=== PATIENT | male | born 1950 | race Two or more races ===

== ENCOUNTER 2018-06-30 18:46 | Observation (INO) | payer BC, OTHER ==
[2018-06-30 19:02] VITALS: BMI 27.4
--- NOTE | 2018-06-30 19:27 | PDOC ---
History of Present Illness - General Chief Complaint: Blood Pressure Problem Stated Complaint: HYPERTENSION Time Seen by Provider: 06/30/18 19:26 History Source: Family (son) Exam Limitations: No Limitations - History of Present Illness Initial Comments: 06/30/18 21:13 Best Contact: PCP:Dr. Best Pmhx: HTN (dx in his 20's) Pshx: Hemorrhoidectomy Allergies: NO KNOWN DRUG ALLERGIES FH: Unknown Social Hx: Cigarettes/ denies Alcohol/ frequent Drugs/denies 68-year-old male presents to the ER with his son complaining of high blood pressure. 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 Patient had a verbal altercation in the early afternoon and shortly after started feeling dizzy/room spinning but denies nausea/vomiting, fever/ chills, headache, lightheadedness, facial pains, neck pain/stiffness, back pains , chest pain, shortness of breath, abdominal pains, flank pains, urinary symptoms: Frequency/urgency/hesitancy, hematuria, extremity numbness or tingling sensation. Early evening today, patient states he went to the local pharmacy and had his blood pressure taken. Patient states his blood pressure was 184/102. Patient was informed by the pharmacist to come directly to the emergency department. Patient also states that while working as a office equipment mechanic earlier in the day, he was attempting to make a phone call but his phone kept on slipping out of his hands. Patient states he can either be his hands were to cold or he felt weak at the time. It only happened 2 times. Patient is able to grab items without any difficulty since arriving to the ER. Past History - Past Medical History Allergies/Adverse Reactions: Allergies Allergy/AdvReac Type Severity Reaction Status Date / Time No Known Allergies Allergy Verified 06/30/18 19:02 Home Medications: Ambulatory Orders Hydrochlorothiazide [Hctz -] 25 mg PO HS 06/30/18 Metoprolol Succinate [Toprol Xl -] 100 mg PO HS 06/30/18 COPD: No HTN: Yes - Suicide/Smoking/Psychosocial Hx Smoking Status: No Smoking History: Unknown if ever smoked Number of Cigarettes Smoked Daily: 0 Review of Systems - Review of Systems Able to Perform ROS?: Yes Comments:: 02/02/19 21:16 CONSTITUTIONAL: Absent: fever, chills, diaphoresis, generalized weakness, malaise, loss of appetite HEENT: Absent: rhinorrhea, nasal congestion, throat pain, throat swelling, difficulty swallowing, mouth swelling, ear pain, eye pain, visual Changes CARDIOVASCULAR: Absent: chest pain, loss of consciousness, palpitations, irregular heart rate, peripheral edema RESPIRATORY: Absent: cough, shortness of breath, dyspnea with exertion, orthopnea, wheezing, stridor, hemoptysis GASTROINTESTINAL: Absent: abdominal pain, abdominal distension, nausea, vomiting, diarrhea, constipation, melena, hematochezia GENITOURINARY: Absent: dysuria, frequency, urgency, hesitancy, hematuria, flank pain, genital pain MUSCULOSKELETAL: Absent: myalgia, arthralgia, joint swelling SKIN: Absent: rash, itching, pallor HEMATOLOGIC/IMMUNOLOGIC: Absent: easy bleeding, easy bruising, lymphadenopathy, frequent infections ENDOCRINE: Absent: unexplained weight gain, unexplained weight loss, heat intolerance, cold intolerance NEUROLOGIC: +dizziness Absent: headache, focal weakness or paresthesias, unsteady gait, seizure, mental status changes, bladder or bowel incontinence PSYCHIATRIC: Absent: anxiety, depression, suicidal or homicidal ideation, hallucinations. Is the patient limited Tajik proficient: No *Physical Exam - Vital Signs Last Vital Signs Temp Pulse Resp BP Pulse Ox 97.8 F 68 22 H 162/100 98 06/30/18 19:01 06/30/18 19:01 06/30/18 19:01 06/30/18 19:01 06/30/18 19:01 - Physical Exam Comments: 06/30/18 21:16 GENERAL: Well developed, well nourished. Awake and alert. No acute distress. HEENT: Normocephalic, atraumatic. PERRLA, EOMI. No conjunctival pallor. Sclera are non- icteric. Moist mucous membranes. Oropharynx is clear. NECK: Supple. Full ROM. No JVD. Carotid pulses 2+ and symmetric, without bruits. No thyromegaly. No lymphadenopathy. CARDIOVASCULAR: Regular rate and rhythm. No murmurs, rubs, or gallops. Distal pulses are 2+ and symmetric. PULMONARY: No evidence of respiratory distress. Lungs clear to auscultation bilaterally. No wheezing, rales or rhonchi. ABDOMINAL: Soft. Non-tender. Non-distended. No rebound or guarding. No organomegaly. Normoactive bowel sounds. MUSCULOSKELETAL Normal range of motion at all joints. No bony deformities or tenderness. No CVA tenderness. EXTREMITIES: No cyanosis. No clubbing. No edema. No calf tenderness. SKIN: Warm and dry. Normal capillary refill. No rashes. No jaundice. NEUROLOGICAL: Alert, awake, appropriate. Cranial nerves 2-12 intact. No deficits to light touch and temperature in face, upper extremities and lower extremities. No motor deficits in the in face, upper extremities and lower extremities. Normoreflexic in the upper and lower extremities. Normal speech. Toes are down- going bilaterally. Gait is normal without ataxia. PSYCHIATRIC: Cooperative. Good eye contact. Appropriate mood and affect. Moderate Sedation - Procedure Monitoring Vital Signs: Procedure Monitoring Vital Signs Temperature 97.8 F 06/30/18 19:01 Pulse Rate 68 06/30/18 19:01 Respiratory Rate 22 H 06/30/18 19:01 Blood Pressure 162/100 06/30/18 19:01 O2 Sat by Pulse Oximetry (%) 98 06/30/18 19:01 Heart Score/ECG Review - History History: Slightly suspicious - Electrocardiogram EKG: Normal - Age Age: >/= 65 - Risk Factors Risk Factors Heart Score: Yes Hx Hypertension Based on the list above the patient has:: 1-2 risk factors - Troponin Troponin: </= normal limit (+LVH) - Score Heart Score - Total: 3 ED Treatment Course - LABORATORY CBC & Chemistry Diagram: 06/30/18 19:32 06/30/18 19:32 *DC/Admit/Observation/Transfer Diagnosis at time of Disposition: Hypertension Qualifiers: Hypertension type: unspecified secondary hypertension Qualified Code(s): I15.9 - Secondary hypertension, unspecified - Discharge Dispostion Condition at time of disposition: Stable Decision to Admit order: Yes - Referrals - Patient Instructions - Post Discharge Activity
[2018-06-30] MEDS ORDERED: METOPROLOL TARTRATE 50 MG TABLET (FP) PO ONE ×2 (19:35)
[2018-06-30] MEDS ORDERED: HYDROCHLOROTHIAZIDE 25 MG TABLET (FP) PO ONE (19:35)
[2018-06-30] MEDS ORDERED: METOPROLOL TARTRATE 50 MG TABLET (FP) ONE (19:42)
[2018-06-30] MEDS ORDERED: HYDROCHLOROTHIAZIDE 25 MG TABLET (FP) ONE ×2 (19:42→19:58)
[2018-06-30 19:52] LABS: BASO % 0.6 % (0-2.0); EOS % 3.2 % (0-4.5); HEMATOCRIT 44.5 % (35.4-49); HEMOGLOBIN 15.8 GM/dL (11.7-16.9); LYMPH % 27.1 % (8-40); MCH 33.7 pg (25.7-33.7); MCHC 35.4 g/dl (32.0-35.9); MEAN CELL VOLUME 95.1 fl (80-96); MEAN PLT VOLUME 7.6 fl (7.5-11.1); MONO % 10.7 % (3.8-10.2); NEUT % 58.4 % (42.8-82.8); PLATELET COUNT 187 K/MM3 (134-434); RBC 4.68 M/mm3 (4.00-5.60); WHITE BLOOD COUNT 6.5 K/mm3 (4.0-10.0)
[2018-06-30 20:04] LABS: URINE APPEARANCE CLEAR; URINE BILIRUBIN NEGATIVE (<2.0 mg/dL); URINE COLOR LTYELLOW; URINE GLUCOSE (UA) NEGATIVE (NEGATIVE); URINE KETONE NEGATIVE (NEGATIVE); URINE LEUK ESTERASE NEGATIVE (NEGATIVE); URINE NITRITE NEGATIVE (NEGATIVE); URINE PROTEIN 1+ (NEGATIVE); URINE UROBILINOGEN 4.0 E.U/dl mg/dL (0.2-1.0)
[2018-06-30 20:28] LABS: ALBUMIN 3.8 g/dl (3.4-5.0); ALK PHOS 86 U/L (45-117); ANION GAP 9 MMOL/L (8-16); BILIRUBIN,TOTAL 0.5 mg/dL (0.2-1); BLOOD UREA NITROGEN 16 mg/dL (7-18); CALCIUM 8.7 mg/dL (8.5-10.1); CHLORIDE 108 mmol/L (98-107); CO2 25 mmol/L (21-32); CREATININE 0.9 mg/dL (0.55-1.3); GLUCOSE,RANDOM 101 mg/dL (74-106); POTASSIUM 3.8 mmol/L (3.5-5.1); SGOT/AST 30 U/L (15-37); SGPT/ALT 32 U/L (13-61); SODIUM 142 mmol/L (136-145); TOT PROT 7.2 g/dl (6.4-8.2)
[2018-06-30] MEDS ORDERED: ASPIRIN 81 MG CHEWABLE TABLETS PO ONE (20:53)
[2018-06-30] MEDS ORDERED: NITROGLYCERIN 2% OINTMENT - 1GM PACKET TD ONE ×3 (20:53→20:59)
[2018-06-30] MEDS ORDERED: ASPIRIN 81 MG CHEWABLE TABLETS ONE (20:56)
[2018-07-01] MEDS ORDERED: ASPIRIN 325 MG TABLET PO SCH (11:30)
[2018-07-01] MEDS ORDERED: ASPIRIN 81 MG CHEWABLE TABLETS PO SCH (12:29)
[2018-07-01] MEDS: HEPARIN NA (PORCINE) 5,000 UNITS/ML 1ML VIAL SQ SCH ×2 (15:18→21:37)
--- NOTE | 2018-07-01 15:39 | EKG ---
Test Reason : Blood Pressure : / mmHG Vent. Rate : 067 BPM Atrial Rate : 067 BPM P-R Int : 170 ms QRS Dur : 072 ms QT Int : 386 ms P-R-T Axes : 054 -02 039 degrees QTc Int : 407 ms NORMAL SINUS RHYTHM VOLTAGE CRITERIA FOR LEFT VENTRICULAR HYPERTROPHY NONSPECIFIC T WAVE ABNORMALITY ABNORMAL ECG WHEN COMPARED WITH ECG OF 25-AUG-2008 16:28, T WAVE INVERSION NO LONGER EVIDENT IN INFERIOR LEADS INVERTED T WAVES HAVE REPLACED NONSPECIFIC T WAVE ABNORMALITY IN LATERAL LEADS Confirmed by GEOVANNA CHAU MD ([id number]) on 07/01/2018 3:38:56 PM Referred By: Confirmed By:GEOVANNA CHAU MD
--- NOTE | 2018-07-01 17:38 | HP ---
CHIEF COMPLAINT: Lightheadedness HISTORY OF PRESENT ILLNESS: 68 year old male with history of HTN, presents with an episode of lightheadedness/dizziness which he describes as the "room spinning", duration over a few seconds. No associated chest pain/palpitations/nausea/vomiting. He was found to be hypertensive in ED with elevated BP, responded to Nitropaste and resuming of home medications. He denies any visual disturbance, headache, limb numbness/tingling. No nausea/vomiting. He does complain of 3 month history of musculoskeletal left arm discomfort and decreased power. No recent URTI or history of vertigo or syncope. PAST MEDICAL HISTORY: HTN PAST SURGICAL HISTORY: None Social History: Smoking: None Alcohol: None Drugs: None Family History: Reviewed and non-contributory Allergies - None No Known Allergies Allergy (Verified 06/30/18 19:02) HOME MEDICATIONS: Home Medications Medication Instructions Recorded Hydrochlorothiazide [Hctz -] 25 mg PO HS 06/30/18 Metoprolol Succinate [Toprol Xl -] 100 mg PO HS 06/30/18 REVIEW OF SYSTEMS CONSTITUTIONAL: Absent: fever, chills, diaphoresis, generalized weakness, malaise, loss of appetite, weight change HEENT: Absent: rhinorrhea, nasal congestion, throat pain, throat swelling, difficulty swallowing, mouth swelling, ear pain, eye pain, visual changes CARDIOVASCULAR: Absent: chest pain, syncope, palpitations, irregular heart rate, lightheadedness , peripheral edema RESPIRATORY: Absent: cough, shortness of breath, dyspnea with exertion, orthopnea, wheezing, stridor, hemoptysis GASTROINTESTINAL: Absent: abdominal pain, abdominal distension, nausea, vomiting, diarrhea, constipation, melena, hematochezia GENITOURINARY: Absent: dysuria, frequency, urgency, hesitancy, hematuria, flank pain, genital pain MUSCULOSKELETAL: Absent: myalgia, arthralgia, joint swelling, back pain, neck pain SKIN: Absent: rash, itching, pallor HEMATOLOGIC/IMMUNOLOGIC: Absent: easy bleeding, easy bruising, lymphadenopathy, frequent infections ENDOCRINE: Absent: unexplained weight gain, unexplained weight loss, heat intolerance, cold intolerance NEUROLOGIC: Absent: headache, focal paresthesias, unsteady gait, seizure, mental status changes, bladder or bowel incontinence PSYCHIATRIC: Absent: anxiety, depression, suicidal or homicidal ideation, hallucinations. PHYSICAL EXAMINATION Vital Signs - 24 hr 06/30/18 07/01/18 07/01/18 19:01 01:43 02:30 Temperature 97.8 F 98.6 F 98.1 F Pulse Rate 68 52 L Pulse Rate [ 60 Apical] Respiratory 22 H 18 20 Rate Blood Pressure 162/100 113/71 Blood Pressure 129/84 [Left Arm] O2 Sat by Pulse 98 97 Oximetry (%) 07/01/18 07/01/18 07/01/18 07:01 08:56 11:15 Temperature Pulse Rate 58 L 58 L Pulse Rate [ Apical] Respiratory 20 20 18 Rate Blood Pressure 130/78 138/44 L Blood Pressure [Left Arm] O2 Sat by Pulse 97 97 Oximetry (%) 07/01/18 14:41 Temperature 98.2 F Pulse Rate 67 Pulse Rate [ Apical] Respiratory 18 Rate Blood Pressure 144/87 Blood Pressure [Left Arm] O2 Sat by Pulse Oximetry (%) GENERAL: Awake, alert, and fully oriented, in no acute distress. HEAD: Normal with no signs of trauma. EYES: Pupils equal, round and reactive to light, extraocular movements intact, sclera anicteric. EARS, NOSE, THROAT: Ears normal, nares patent, oropharynx clear without exudates. Moist mucous membranes. NECK: Normal range of motion, supple without lymphadenopathy, JVD, or masses. LUNGS: Breath sounds equal, clear to auscultation bilaterally. No wheezes, and no crackles. No accessory muscle use. HEART: Regular rate and rhythm, normal S1 and S2 without murmur, rub or gallop. ABDOMEN: Soft, nontender, not distended, normoactive bowel sounds, no guarding, no rebound, no masses. No hepatomegaly or splenomegaly. MUSCULOSKELETAL: Normal range of motion at all joints. No bony deformities or tenderness. No CVA tenderness. NEUROLOGICAL: Cranial nerves II-XII intact. Normal speech. Normal gait. Tone/ Power normal all 4 extremities. EXTREMITIES: No edema. No calf tenderness. PSYCHIATRIC: Cooperative. Good eye contact. Appropriate mood and affect. SKIN: Warm, dry, normal turgor, no rashes or lesions noted, normal capillary refill. Laboratory Results - last 24 hr 06/30/18 06/30/18 06/30/18 19:32 19:32 19:32 WBC 6.5 RBC 4.68 Hgb 15.8 Hct 44.5 MCV 95.1 MCH 33.7 MCHC 35.4 RDW 13.0 Plt Count 187 MPV 7.6 Absolute Neuts (auto) 3.8 Neutrophils % 58.4 Lymphocytes % 27.1 Monocytes % 10.7 H Eosinophils % 3.2 Basophils % 0.6 Nucleated RBC % 0 Sodium 142 Potassium 3.8 Chloride 108 H Carbon Dioxide 25 Anion Gap 9 BUN 16 Creatinine 0.9 Creat Clearance w eGFR > 60 Random Glucose 101 Calcium 8.7 Total Bilirubin 0.5 AST 30 ALT 32 Alkaline Phosphatase 86 Creatine Kinase Creatine Kinase Index CK-MB (CK-2) Troponin I Total Protein 7.2 Albumin 3.8 TSH 2.88 Urine Color Ltyellow Urine Appearance Clear Urine pH 7.0 Ur Specific [place] 1.016 Urine Protein 1+ H Urine Glucose (UA) Negative Urine Ketones Negative Urine Blood Negative Urine Nitrite Negative Urine Bilirubin Negative Urine Urobilinogen 4.0 e.u/dl Ur Leukocyte Esterase Negative Urine WBC (Auto) 1 Urine RBC (Auto) <1 06/30/18 06/30/18 19:32 22:47 WBC RBC Hgb Hct MCV MCH MCHC RDW Plt Count MPV Absolute Neuts (auto) Neutrophils % Lymphocytes % Monocytes % Eosinophils % Basophils % Nucleated RBC % Sodium Potassium Chloride Carbon Dioxide Anion Gap BUN Creatinine Creat Clearance w eGFR Random Glucose Calcium Total Bilirubin AST ALT Alkaline Phosphatase Creatine Kinase 309 H 320 H Creatine Kinase Index 1.3 1.1 CK-MB (CK-2) 4.2 H 3.8 H Troponin I 0.04 0.03 Total Protein Albumin TSH Urine Color Urine Appearance Urine pH Ur Specific [place] Urine Protein Urine Glucose (UA) Urine Ketones Urine Blood Urine Nitrite Urine Bilirubin Urine Urobilinogen Ur Leukocyte Esterase Urine WBC (Auto) Urine RBC (Auto) ASSESSMENT/PLAN: 68 year old male with history of HTN, presents with an episode of lightheadedness/dizziness, resolved, with no associated chest pain/palpitations/ SOB/headache/neurological deficit. 1. Episode of Dizziness, possible Vertigo - resolved. Lasted only seconds. No neurological findings/deficits. No nystagmus. No associated cardiac or neurologic symptoms/signs CT Head - no acute cardiopulmonary findings. ECG - LVH. SR, Nonspecific T wave abnormality. Will request Echo and Carotid with 24 hour telemonitoring. PT eval. 2. Widened Mediastinum on CXR Asymptomatic. Will request BP both arms and CTA Chest. 3. HTN - resumed on Metopolol and HCTZ. DVT Px - Heparin SQ Visit type - Emergency Visit Emergency Visit: Yes ED Registration Date: 07/01/18 Care time: The patient presented to the Emergency Department on the above date and was hospitalized for further evaluation of their emergent condition. - New Patient This patient is new to me today: Yes Date on this admission: 07/01/18 - Critical Care Critical Care patient: No
[2018-07-01] MEDS ORDERED: HYDROCHLOROTHIAZIDE 25 MG TABLET (FP) PO SCH (22:00)
[2018-07-02] MEDS: HEPARIN NA (PORCINE) 5,000 UNITS/ML 1ML VIAL SQ SCH ×2 (05:24→13:41)
--- NOTE | 2018-07-02 11:53 | PN ---
Teaching Attending Note Name of Resident: Gigi Tim ATTENDING PHYSICIAN STATEMENT I saw and evaluated the patient. I reviewed the resident's note and discussed the case with the resident. I agree with the resident's findings and plan as documented. SUBJECTIVE: Feels well - no further lightheadedness/dizziness. OBJECTIVE: Afebrile, Hemodynamically Stable. Last Vital Signs Temp Pulse Resp BP Pulse Ox 97.6 F 60 20 148/78 98 07/02/18 09:00 07/02/18 05:25 07/02/18 09:00 07/02/18 09:00 07/02/18 07:42 HEENT - Atraumatic, Normocephalic. Heart - S1, S2, RRR Lungs - clear to auscultation. Abdomen - soft, non-tender. Bowel Sounds normal. Neuro - AAO x 3. BESSIE. EOMI. NO nystagmus. Tone/Power normal all 4 extremities. Current Medications Generic Name Dose Route Start Last Admin Trade Name Freq PRN Reason Stop Dose Admin Aspirin 81 mg 07/01/18 12:29 07/02/18 09:21 Asa - PO 81 mg DAILY BERNADINE Administration Heparin Sodium (Porcine) 5,000 unit 07/01/18 14:00 07/02/18 05:24 Heparin - SQ 5,000 unit TID BERNADINE Administration Hydrochlorothiazide 25 mg 07/01/18 22:00 07/01/18 21:37 Hctz - PO 25 mg HS BERNADINE Administration Metoprolol Succinate 100 mg 07/01/18 22:00 07/01/18 21:37 Toprol Xl - PO 100 mg HS BERNADINE Administration ASSESSMENT/PLAN: 68 year old male with history of HTN, presents with an episode of lightheadedness/dizziness, resolved, with no associated chest pain/palpitations/ SOB/headache/neurological deficit. He was found to be hypertensive in ED. 1. Episode of Dizziness, possible Vertigo - resolved. Lasted only seconds. No neurological findings/deficits. No nystagmus. No associated cardiac or neurologic symptoms/signs CT Head - no acute cardiopulmonary findings. ECG - LVH. SR, Nonspecific T wave abnormality. Carotid Doppler - no hemodynamically significant stenosis. Echo pending No telemonitoring events. If Echo is unremarkable, then patient is medically stable for discharge. 2. Widened Mediastinum on CXR Asymptomatic. CTA Chest - borderline dilatation of ascending aorta, no dissection. 3. HTN - resumed on Metopolol and HCTZ. DVT Px - Heparin SQ
--- NOTE | 2018-07-02 14:21 | ECHO ---
Name: CORWIN CRAIG Exam:Adult Echocardiogram Study Date: 07/02/2018 08:49 AM Age: 68 yrs Reason For Study: Hypertension Height: 66 in Weight: 170 lb BSA: 1.9 m2 MMode/2D Measurements & Calculations IVSd: 1.2 cm ACS: 2.0 cm LVIDd: 4.5 cm LVIDs: 3.5 cm LVPWd: 1.4 cm EDV(Teich): 91.7 ml LVOT diam: 2.0 cm ESV(Teich): 52.2 ml Doppler Measurements & Calculations Med Peak E' Max: 10.1 cm/sec Lat Peak E' Max: 9.4 cm/sec Procedure A complete two-dimensional transthoracic echocardiogram was performed (2D, M-mode, Doppler and color flow Doppler). Technically limited study. Left Ventricle The left ventricle is normal in size. There is mild concentric left ventricular hypertrophy. Left jonathan tricular systolic function is low normal. Ejection Fraction = 50-55%. No regional wall motion abnormalities no taqueria. Right Ventricle The right ventricle is not well visualized. Atria The left atrial size is normal. Right atrial size is normal. Mitral Valve There is mild mitral annular calcification. There is trace mitral regurgitation. Tricuspid Valve The tricuspid valve is normal in structure and function. No tricuspid regurgitation. Aortic Valve There is mild aortic sclerosis.;. Trace to mild aortic regurgitation. Pulmonic Valve The pulmonic valve is not well visualized. Great Vessels The aortic root is normal size. Pericardium/Pleura There is no pericardial effusion. Interpretation Summary Technically limited study The left ventricle is normal in size. There is mild concentric left ventricular hypertrophy. Left ventricular systolic function is low normal. No regional wall motion abnormalities noted. Ejection Fraction = 50-55%. The right ventricle is not well visualized. The left atrial size is normal. Right atrial size is normal. There is mild mitral annular calcification. There is trace mitral regurgitation. There is mild aortic sclerosis. Trace to mild aortic regurgitation. There is no pericardial effusion. Previous study is not available for comparison Umer Kerr MD 07/02/2018 02:21 PM
[2018-07-02 14:53] VITALS: BP 128/83; PULSE 70; TEMP 98.2
--- NOTE | 2018-07-02 15:01 | DS ---
Physical Exam: SUBJECTIVE: Patient seen and examined this morning. He states he is feeling well. Denies any symptoms or concerns overnight. OBJECTIVE: Vital Signs Period Temp Pulse Resp BP Sys/Martinez Pulse Ox Last 24 Hr 97.6 F-98.8 F 60-70 16-20 121-148/74-89 98-98 PHYSICAL EXAM GENERAL: A&O, no acute distress HEAD: Normocephalic, atraumatic. EARS, NOSE, THROAT: oropharynx clear without exudates. Moist mucous membranes. LUNGS: CTA b/l, no crackles or wheezes HEART: Regular rate and rhythm, normal S1 and S2 without murmur ABDOMEN: Soft, nontender to palpation, normoactive bowel sounds MUSCULOSKELETAL: No bony deformities or tenderness. EXTREMITIES: warm, well-perfused. No peripheral edema. LABS HOSPITAL COURSE: Date of Admission:07/01/18 Date of Discharge: 07/02/18 HPI on Admission: 68 year old male with history of HTN, presents with an episode of lightheadedness/dizziness which he describes as the "room spinning", duration over a few seconds. No associated chest pain/palpitations/nausea/vomiting. He was found to be hypertensive in ED with elevated BP, responded to Nitropaste and resuming of home medications. He denies any visual disturbance, headache, limb numbness/tingling. No nausea/vomiting. He does complain of 3 month history of musculoskeletal left arm discomfort and decreased power. No recent URTI or history of vertigo or syncope. Hospital Course: Head CT and ECHO were without any signs of acute pathology. CXR revealed a widened mediastinum, concerning pathology was ruled out with a CTA of the chest. Pt clinically improved. His blood pressure remained well controlled on his home medications. He was deemed medically safe for discharge and instructed to follow up with his primary care physician within one week. Minutes to complete discharge: 35 Discharge Summary Reason For Visit: HYPERTENSION Current Active Problems Hypertension (Chronic) Condition: Stable - Instructions Diet, Activity, Other Instructions: You were admitted following an episode of dizziness and noted to have elevated blood pressure. You were given your home medications and your blood pressure improved. All of the imaging studies performed did not reveal any concerning findings. You had an ultrasound of your carotid arteries, a head CT scan, and an ECHO (ultrasound of your heart). At this point you are medically stable for discharge. You should resume taking your home medications as they are prescribed. You were started on a baby aspirin (81 mg daily). This medication has been sent to your pharmacy, however you can purchase it over the counter as well. You should follow up with your primary doctor in one week. If you have any concerning symptoms, you should be evaluated by your doctor or return to the emergency department. Referrals: Katerine Sinclair MD [Non Staff, Medical] - 1 Week Disposition: HOME - Home Medications Comprehensive Discharge Medication List: Ambulatory Orders Hydrochlorothiazide [Hctz -] 25 mg PO HS 06/30/18 Metoprolol Succinate [Toprol XL -] 100 mg PO HS 06/30/18 Aspirin [ASA -] 81 mg PO DAILY #30 tab.chew 07/02/18 This patient is new to me today: Yes Date on this admission: 07/02/18 Emergency Visit: Yes ED Registration Date: 07/01/18 Care time: The patient presented to the Emergency Department on the above date and was hospitalized for further evaluation of their emergent condition. Critical Care patient: No - Discharge Referral Referred to [facility] Med P.C.: No
== END 2018-07-02 16:27 | disposition home or self-care (01) ==
LOC: JER 18:46 → JERBED 07-01 00:08 → J4W 07-01 02:31
PROVIDERS: ADMIT Internal Medicine
PROC: 3E013GC Introduction of Other Therapeutic Substance into Subcutaneous Tissue, Percutaneous Approach (ICD-10-PCS; principal; 2018-07-01)
DX: I15.9 Secondary hypertension, unspecified (principal); J98.59 Other diseases of mediastinum, not elsewhere classified; I11.0 Hypertensive heart disease with heart failure
CPT/HCPCS: 36415; 70450-TC; 71046-TC-FY; 71275-TC; 80053; 81003; 81015; 82550; 82553; 84443; 84484; 85025; 93005; 93010; 93306-TC; 93880-TC; 96372; 97116-GP; 97161-GP; 99282-25; G0378; J1644

== ENCOUNTER 2022-04-07 21:09 | Inpatient (IN) | payer OTHER ==
[2022-04-07 21:14] VITALS: BMI 26.6
[2022-04-07 22:17] LABS: BASO % 0.3 % (0-2.0); EOS % 2.4 % (0-4.5); HEMATOCRIT 45.2 % (35.4-49); HEMOGLOBIN 15.8 GM/dL (11.7-16.9); LYMPH % 21.8 % (8-40); MCH 33.7 pg (25.7-33.7); MEAN CELL VOLUME 96.3 fl (80-96); MEAN PLT VOLUME 6.9 fl (7.5-11.1); MONO % 8.5 % (3.8-10.2); PLATELET COUNT 240 10^3/uL (134-434); RBC 4.69 M/mm3 (4.00-5.60); RDW 13.2 % (11.9-15.9); WHITE BLOOD COUNT 12.3 K/mm3 (4.0-10.0)
[2022-04-07 22:24] LABS: INR 1.18 (0.83-1.09); PROTHROMBIN TIME (PATIENT) 13.6 SEC (9.7-13.0)
[2022-04-07 22:27] LABS: ACTIVATED PTT 27.2 SECONDS (25.2-36.5)
[2022-04-07 22:38] LABS: CHLORIDE 102 mmol/L (98-107); SODIUM 129 mmol/L (136-145)
[2022-04-07 22:40] LABS: CALCIUM 8.2 mg/dL (8.5-10.1)
[2022-04-07 22:41] LABS: ALBUMIN 3.2 g/dl (3.4-5.0); BLOOD UREA NITROGEN 25.9 mg/dL (7-18); CO2 27 mmol/L (21-32); GLUCOSE,RANDOM 123 mg/dL (74-106)
[2022-04-07 22:43] LABS: CHOLESTEROL 109 mg/dL (50-200); CREATININE 0.9 mg/dL (0.55-1.3); TRIGLYCERIDES 306 mg/dL (0-150)
[2022-04-07 22:45] LABS: LDL CHOLESTEROL (ONLY SJRH) 59 mg/dL (5-100); TOT PROT 7.9 g/dl (6.4-8.2)
[2022-04-07 22:46] LABS: ALK PHOS 67 U/L (45-117); HDL CHOLESTEROL 43 mg/dL (40-60)
[2022-04-07 22:48] LABS: ANISOCYTOSIS 1+; MACROCYTOSIS 0; TARGET CELLS 1+
[2022-04-07 22:54] LABS: ANION GAP -1 MMOL/L (8-16); SGOT/AST 171 U/L (15-37)
[2022-04-07] MEDS ORDERED: ASPIRIN 81 MG CHEWABLE TABLETS PO ONE (23:06)
[2022-04-07] MEDS ORDERED: LACTATED RINGERS SOLUTION 1000 ML INFUS.BAG IV ONE (23:06)
[2022-04-07] MEDS ORDERED: ATORVASTATIN CA 80 MG TABLET (FP) PO ONE (23:07)
[2022-04-07] MEDS ORDERED: ATORVASTATIN CA 80 MG TABLET (FP) ONE (23:14)
[2022-04-07] MEDS ORDERED: ASPIRIN 81 MG CHEWABLE TABLETS ONE (23:15)
[2022-04-07 23:39] LABS: CALCIUM 9.1 mg/dL (8.5-10.1)
[2022-04-07 23:41] LABS: ALBUMIN 3.5 g/dl (3.4-5.0)
[2022-04-07 23:44] LABS: CREATININE 0.8 mg/dL (0.55-1.3)
[2022-04-07 23:45] LABS: BILIRUBIN,TOTAL 0.4 mg/dL (0.2-1)
[2022-04-07 23:46] LABS: TOT PROT 6.8 g/dl (6.4-8.2)
[2022-04-08 02:34] LABS: PHOSPHOROUS 3.2 mg/dL (2.5-4.9)
[2022-04-08 08:25] LABS: BASO % 0.3 % (0-2.0); EOS % 3.5 % (0-4.5); HEMOGLOBIN 15.8 GM/dL (11.7-16.9); LYMPH % 25.8 % (8-40); MCH 34.1 pg (25.7-33.7); MCHC 35.2 g/dl (32.0-35.9); MEAN PLT VOLUME 7.2 fl (7.5-11.1); MONO % 8.7 % (3.8-10.2); NEUT % 61.7 % (42.8-82.8); PLATELET COUNT 234 10^3/uL (134-434); RBC 4.63 M/mm3 (4.00-5.60); RDW 13.1 % (11.9-15.9)
[2022-04-08 08:51] LABS: ALBUMIN 3.4 g/dl (3.4-5.0)
[2022-04-08 08:52] LABS: BLOOD UREA NITROGEN 19.5 mg/dL (7-18); CALCIUM 8.7 mg/dL (8.5-10.1)
[2022-04-08 08:54] LABS: MAGNESIUM 2.3 mg/dL (1.8-2.4)
[2022-04-08 08:55] LABS: BILIRUBIN,TOTAL 0.6 mg/dL (0.2-1); CREATININE 0.7 mg/dL (0.55-1.3); TOT PROT 6.4 g/dl (6.4-8.2)
[2022-04-08] MEDS: ASPIRIN 81 MG CHEWABLE TABLETS PO SCH (09:43)
[2022-04-08] MEDS: ENOXAPARIN NA (PORCINE) 40 MG/0.4 ML DISP.SYRIN SQ SCH (09:43)
[2022-04-08] MEDS: HYDROCHLOROTHIAZIDE 25 MG TABLET (FP) PO SCH (16:36)
[2022-04-08] MEDS: ATORVASTATIN CA 80 MG TABLET (FP) PO SCH (21:40)
[2022-04-09 07:26] LABS: HEMATOCRIT 47.1 % (35.4-49); HEMOGLOBIN 16.3 GM/dL (11.7-16.9); MCH 33.6 pg (25.7-33.7); MCHC 34.7 g/dl (32.0-35.9); MEAN CELL VOLUME 96.9 fl (80-96); MEAN PLT VOLUME 7.1 fl (7.5-11.1); PLATELET COUNT 253 10^3/uL (134-434); RBC 4.86 M/mm3 (4.00-5.60); RDW 13.4 % (11.9-15.9); WHITE BLOOD COUNT 10.3 K/mm3 (4.0-10.0)
[2022-04-09 07:44] LABS: CALCIUM 8.9 mg/dL (8.5-10.1)
[2022-04-09 07:45] LABS: ALBUMIN 3.6 g/dl (3.4-5.0)
[2022-04-09 07:48] LABS: CREATININE 0.8 mg/dL (0.55-1.3)
[2022-04-09 07:49] LABS: BILIRUBIN,TOTAL 0.9 mg/dL (0.2-1)
[2022-04-09] MEDS: HYDROCHLOROTHIAZIDE 25 MG TABLET (FP) PO SCH (09:10)
[2022-04-09] MEDS: ASPIRIN 81 MG CHEWABLE TABLETS PO SCH (09:10)
[2022-04-09] MEDS: ENOXAPARIN NA (PORCINE) 40 MG/0.4 ML DISP.SYRIN SQ SCH (09:11)
[2022-04-09] MEDS ORDERED: SODIUM CHLORIDE 1,000 ML IV SCH (16:45)
[2022-04-09] MEDS: CLOPIDOGREL BISULFATE 75 MG TABLET (FP) PO SCH (17:39)
[2022-04-09] MEDS: ATORVASTATIN CA 80 MG TABLET (FP) PO SCH (23:05)
[2022-04-09] MEDS: DEXTROSE 5%-NORMAL SALINE 1,000 ML IV SCH (23:05)
[2022-04-10 08:22] LABS: BASO % 0.3 % (0-2.0); EOS % 1.6 % (0-4.5); HEMATOCRIT 45.7 % (35.4-49); HEMOGLOBIN 16.4 GM/dL (11.7-16.9); LYMPH % 21.4 % (8-40); MCH 34.6 pg (25.7-33.7); MCHC 35.8 g/dl (32.0-35.9); MEAN CELL VOLUME 96.7 fl (80-96); MEAN PLT VOLUME 6.9 fl (7.5-11.1); MONO % 9.7 % (3.8-10.2); PLATELET COUNT 231 10^3/uL (134-434); RBC 4.73 M/mm3 (4.00-5.60); RDW 13.2 % (11.9-15.9); WHITE BLOOD COUNT 9.5 K/mm3 (4.0-10.0)
[2022-04-10 08:34] LABS: CALCIUM 9.2 mg/dL (8.5-10.1)
[2022-04-10 08:35] LABS: ALBUMIN 3.5 g/dl (3.4-5.0); BLOOD UREA NITROGEN 18.3 mg/dL (7-18); MAGNESIUM 2.1 mg/dL (1.8-2.4)
[2022-04-10 08:38] LABS: CREATININE 0.8 mg/dL (0.55-1.3); PHOSPHOROUS 3.2 mg/dL (2.5-4.9)
[2022-04-10 08:40] LABS: TOT PROT 6.9 g/dl (6.4-8.2)
[2022-04-10] MEDS: ENOXAPARIN NA (PORCINE) 40 MG/0.4 ML DISP.SYRIN SQ SCH (10:57)
[2022-04-10] MEDS: CLOPIDOGREL BISULFATE 75 MG TABLET (FP) PO SCH (11:13)
[2022-04-10] MEDS: ASPIRIN COATED 81 MG TABLET.EC PO SCH (11:13)
[2022-04-10] MEDS: DEXTROSE 5%-NORMAL SALINE 1,000 ML IV SCH (20:43)
[2022-04-10] MEDS: ATORVASTATIN CA 80 MG TABLET (FP) PO SCH (21:49)
[2022-04-11] MEDS: CLOPIDOGREL BISULFATE 75 MG TABLET (FP) PO SCH (09:19)
[2022-04-11] MEDS: ASPIRIN COATED 81 MG TABLET.EC PO SCH (09:19)
[2022-04-11] MEDS: ENOXAPARIN NA (PORCINE) 40 MG/0.4 ML DISP.SYRIN SQ SCH (09:19)
[2022-04-11 11:56] LABS: HEMOGLOBIN 16.5 GM/dL (11.7-16.9); MCH 34.2 pg (25.7-33.7); MEAN CELL VOLUME 97.5 fl (80-96); MEAN PLT VOLUME 6.7 fl (7.5-11.1); PLATELET COUNT 234 10^3/uL (134-434); RBC 4.82 M/mm3 (4.00-5.60); RDW 13.2 % (11.9-15.9); WHITE BLOOD COUNT 12.7 K/mm3 (4.0-10.0)
[2022-04-11 12:26] LABS: BLOOD UREA NITROGEN 13.8 mg/dL (7-18); CALCIUM 9.1 mg/dL (8.5-10.1); MAGNESIUM 2.2 mg/dL (1.8-2.4)
[2022-04-11 12:30] LABS: CREATININE 0.7 mg/dL (0.55-1.3)
[2022-04-11] MEDS: ATORVASTATIN CA 80 MG TABLET (FP) PO SCH (21:07)
[2022-04-12 08:02] VITALS: RESP 18
[2022-04-12 08:55] LABS: CALCIUM 8.8 mg/dL (8.5-10.1)
[2022-04-12 08:56] LABS: BLOOD UREA NITROGEN 16.2 mg/dL (7-18)
[2022-04-12 08:59] LABS: CREATININE 0.9 mg/dL (0.55-1.3)
[2022-04-12] MEDS: CLOPIDOGREL BISULFATE 75 MG TABLET (FP) PO SCH (09:32)
[2022-04-12] MEDS: ENOXAPARIN NA (PORCINE) 40 MG/0.4 ML DISP.SYRIN SQ SCH (09:32)
[2022-04-12] MEDS: ASPIRIN COATED 81 MG TABLET.EC PO SCH (09:32)
[2022-04-12] MEDS: VALSARTAN 80 MG TABLET PO SCH (09:32)
[2022-04-12] MEDS ORDERED: HYDROCHLOROTHIAZIDE 25 MG TABLET (FP) PO SCH (14:30)
[2022-04-12] MEDS: HYDROCHLOROTHIAZIDE 25 MG TABLET (FP) PO SCH (15:30)
[2022-04-12] MEDS: ATORVASTATIN CA 80 MG TABLET (FP) PO SCH (21:39)
[2022-04-13] MEDS: HYDROCHLOROTHIAZIDE 25 MG TABLET (FP) PO SCH (09:59)
[2022-04-13] MEDS: ASPIRIN COATED 81 MG TABLET.EC PO SCH (09:59)
[2022-04-13] MEDS: ENOXAPARIN NA (PORCINE) 40 MG/0.4 ML DISP.SYRIN SQ SCH (09:59)
[2022-04-13] MEDS: CLOPIDOGREL BISULFATE 75 MG TABLET (FP) PO SCH (09:59)
[2022-04-13] MEDS: VALSARTAN 80 MG TABLET PO SCH (09:59)
[2022-04-13] MEDS: ATORVASTATIN CA 80 MG TABLET (FP) PO SCH (21:29)
[2022-04-14 09:12] VITALS: TEMP 98.8
[2022-04-14] MEDS: ENOXAPARIN NA (PORCINE) 40 MG/0.4 ML DISP.SYRIN SQ SCH (09:12)
[2022-04-14] MEDS: CLOPIDOGREL BISULFATE 75 MG TABLET (FP) PO SCH (09:13)
[2022-04-14] MEDS: HYDROCHLOROTHIAZIDE 25 MG TABLET (FP) PO SCH (09:13)
[2022-04-14] MEDS: VALSARTAN 80 MG TABLET PO SCH (09:13)
[2022-04-14] MEDS: ASPIRIN COATED 81 MG TABLET.EC PO SCH (09:13)
[2022-04-14 16:12] VITALS: BP 119/75; PULSE 79
== END 2022-04-14 16:45 | DRG 65 ==
LOC: JER 21:09 → JERBED 23:08 → J4W 04-08 03:52 → OBSVTOIN 04-10 12:08 → J4W 04-11 21:07
PROVIDERS: ADMIT Internal Medicine; ATTEND Internal Medicine
DX: I63.81 Other cerebral infarction due to occlusion or stenosis of small artery (principal); G12.22 Progressive bulbar palsy; G81.91 Hemiplegia, unspecified affecting right dominant side; I47.20 Ventricular tachycardia, unspecified; I11.9 Hypertensive heart disease without heart failure; E78.5 Hyperlipidemia, unspecified; R47.01 Aphasia; I65.29 Occlusion and stenosis of unspecified carotid artery; E78.00 Pure hypercholesterolemia, unspecified; I67.2 Cerebral atherosclerosis; D72.829 Elevated white blood cell count, unspecified
CPT/HCPCS: 0241U-QW; 36415; 70450-TC; 70496-TC; 70498-TC; 70551-TC; 71045-TC-FY; 80048; 80053; 80061; 82962; 83036; 83735; 84100; 84439; 84443; 84484; 85025; 85027; 85610; 85730; 86850; 86900; 86901; 93005; 93010; 93306-TC; 93880-TC; 97116-GP; 97161-GP; 99285-25; C9803-CS; G0378; Q9967; U0003; U0005

== ENCOUNTER 2022-05-11 19:12 | Emergency (ER) | payer OTHER ==
[2022-05-11 19:25] VITALS: RESP 18; TEMP 98.2; BMI 25.0
[2022-05-11 20:10] VITALS: BP 141/88; PULSE 78
[2022-05-11 21:05] LABS: HEMATOCRIT 37.6 % (35.4-49); HEMOGLOBIN 13.1 GM/dL (11.7-16.9); MCH 32.8 pg (25.7-33.7); MCHC 34.8 g/dl (32.0-35.9); MEAN CELL VOLUME 94.3 fl (80-96); MEAN PLT VOLUME 6.7 fl (7.5-11.1); PLATELET COUNT 241 10^3/uL (134-434); RBC 3.99 M/mm3 (4.00-5.60); RDW 12.5 % (11.9-15.9); WHITE BLOOD COUNT 9.8 K/mm3 (4.0-10.0)
[2022-05-11 21:15] LABS: INR 1.34 (0.83-1.09); PROTHROMBIN TIME (PATIENT) 15.4 SEC (9.7-13.0)
[2022-05-11 21:18] LABS: ACTIVATED PTT 31.3 SECONDS (25.2-36.5)
== END 2022-05-11 22:34 | disposition home or self-care (01) ==
LOC: JER 19:12
DX: R04.0 Epistaxis (principal)
CPT/HCPCS: 36415; 85027; 85610; 85730; 99283-25

== ENCOUNTER 2022-07-03 23:02 | Emergency (ER) | payer OTHER ==
[2022-07-03 23:10] VITALS: BP 142/78; PULSE 75; RESP 18; TEMP 98; BMI 27.4
[2022-07-04 02:24] LABS: BASO % 0.6 % (0-2.0); EOS % 3.5 % (0-4.5); HEMOGLOBIN 13.2 GM/dL (11.7-16.9); LYMPH % 26.9 % (8-40); MCH 33.2 pg (25.7-33.7); MCHC 34.8 g/dl (32.0-35.9); MEAN CELL VOLUME 95.4 fl (80-96); MEAN PLT VOLUME 7.2 fl (7.5-11.1); MONO % 8.1 % (3.8-10.2); NEUT % 60.9 % (42.8-82.8); PLATELET COUNT 229 10^3/uL (134-434); RBC 3.98 M/mm3 (4.00-5.60); RDW 14.1 % (11.9-15.9); WHITE BLOOD COUNT 8.6 K/mm3 (4.0-10.0)
[2022-07-04 02:32] LABS: INR 1.22 (0.83-1.09); PROTHROMBIN TIME (PATIENT) 14.1 SEC (9.7-13.0)
[2022-07-04 02:45] LABS: ALBUMIN 3.7 g/dl (3.4-5.0); CALCIUM 9.1 mg/dL (8.5-10.1)
[2022-07-04 02:46] LABS: BLOOD UREA NITROGEN 22.8 mg/dL (7-18)
[2022-07-04 02:48] LABS: CREATININE 1.1 mg/dL (0.55-1.3)
[2022-07-04 02:50] LABS: BILIRUBIN,TOTAL 0.4 mg/dL (0.2-1); TOT PROT 7.3 g/dl (6.4-8.2)
== END 2022-07-04 03:45 | disposition home or self-care (01) ==
LOC: JER 23:02
DX: R04.0 Epistaxis (principal)
CPT/HCPCS: 36415; 80053; 85025; 85610; 85730; 86850; 86900; 86901; 99283-25

== ENCOUNTER 2022-07-10 11:12 | Emergency (ER) | payer OTHER ==
[2022-07-10 11:19] VITALS: TEMP 98.5; BMI 27.4
[2022-07-10 12:30] LABS: BASO % 0.4 % (0-2.0); EOS % 1.7 % (0-4.5); HEMATOCRIT 39.2 % (35.4-49); HEMOGLOBIN 13.7 GM/dL (11.7-16.9); LYMPH % 20.3 % (8-40); MCH 33.7 pg (25.7-33.7); MEAN CELL VOLUME 96.4 fl (80-96); MEAN PLT VOLUME 6.8 fl (7.5-11.1); MONO % 7.2 % (3.8-10.2); NEUT % 70.4 % (42.8-82.8); PLATELET COUNT 278 10^3/uL (134-434); RBC 4.07 M/mm3 (4.00-5.60); RDW 14.2 % (11.9-15.9); WHITE BLOOD COUNT 9.4 K/mm3 (4.0-10.0)
[2022-07-10 12:38] LABS: INR 1.21 (0.83-1.09)
[2022-07-10 12:41] LABS: ACTIVATED PTT 29.2 SECONDS (25.2-36.5)
[2022-07-10 12:59] LABS: ALBUMIN 3.8 g/dl (3.4-5.0); BLOOD UREA NITROGEN 16.8 mg/dL (7-18)
[2022-07-10 13:02] LABS: CREATININE 0.9 mg/dL (0.55-1.3)
[2022-07-10 13:04] LABS: BILIRUBIN,TOTAL 0.8 mg/dL (0.2-1); TOT PROT 7.4 g/dl (6.4-8.2)
[2022-07-10 13:29] VITALS: RESP 16
[2022-07-10] MEDS ORDERED: MECLIZINE HCL 25 MG TABLET (FP) PO ONE (15:38)
[2022-07-10] MEDS ORDERED: MECLIZINE HCL 25 MG TABLET (FP) ONE (15:43)
[2022-07-10 18:10] VITALS: BP 161/100; PULSE 62
== END 2022-07-10 18:11 | disposition home or self-care (01) ==
LOC: JER 11:12
DX: R42 Dizziness and giddiness (principal)
CPT/HCPCS: 36415; 70450-TC; 80053; 84484; 85025; 85610; 85730; 86850; 86900; 86901; 93005; 93010; 99285-25; C9803-CS; U0003; U0005

== ENCOUNTER 2023-03-01 10:02 | Day surgery (SDC) | payer OTHER ==
[2023-02-28 16:15] VITALS: BMI 29.9
[2023-03-01] MEDS ORDERED: TETRACAINE 0.5% OPHTH SOLN 2 ML BOTTLE ONE (10:23)
[2023-03-01] MEDS ORDERED: LIDOCAINE 1% P/F 10 MG/ML VIAL ONE (10:23)
[2023-03-01] MEDS ORDERED: NEO/POLYMYX B SULF/DEXAMETH OPHTHALMIC 5ML BOTTLE ONE (10:23)
[2023-03-01] MEDS ORDERED: BSS (NA/CA/MG/K) BALANCED SALT SOLUTION OPHTH SOLN 15 ML BOTTLE ONE (10:23)
[2023-03-01] MEDS ORDERED: CARBACHOL 0.01% INTRA-OCULAR 1.5 ML VIAL ONE (10:23)
[2023-03-01] MEDS ORDERED: MIDAZOLAM HCL 2 MG/2 ML SINGLE DOSE VIAL ONE (10:41)
[2023-03-01] MEDS: CIPROFLOXACIN HCL 0.3% OPHTH 2.5ML BOTTLE ONE ×3 (11:40→11:50)
[2023-03-01] MEDS: PHENYLEPHRINE 2.5% OPTHALMIC DROP 2ML BOTTLE ONE ×3 (11:40→11:50)
[2023-03-01] MEDS: TROPICAMIDE 1% OPHTH SOLN 15 ML BOTTLE ONE ×3 (11:40→11:50)
[2023-03-01] MEDS: CYCLOPENTOLATE 2% OPHTH SOLN 2 ML BOTTLE ONE ×3 (11:40→11:50)
[2023-03-01] MEDS ORDERED: EPINEPHrine/PF 1 MG/1 ML (1:1,000) AMPULE ONE (12:18)
[2023-03-01 13:13] VITALS: TEMP 97.8
[2023-03-01 13:56] VITALS: BP 130/94; PULSE 66; RESP 16
== END 2023-03-01 13:45 | disposition home or self-care (01) ==
LOC: FASU 10:02
PROVIDERS: ATTEND Ophthalmology
PROC: 08RJ3JZ Replacement of Right Lens with Synthetic Substitute, Percutaneous Approach (ICD-10-PCS; principal; 2023-03-01 12:38)
DX: H26.8 Other specified cataract (principal)
CPT/HCPCS: 66984; V2632

== ENCOUNTER 2023-04-22 22:09 | Emergency (ER) | payer OTHER ==
[2023-04-22] MEDS ORDERED: METOCLOPRAMIDE HCL INJECTION 10 MG/2 ML VIAL IVPUSH ONE (22:55)
[2023-04-22 23:00] VITALS: TEMP 97.9; BMI 25.8
[2023-04-22] MEDS ORDERED: METOCLOPRAMIDE HCL INJECTION 10 MG/2 ML VIAL ONE (23:17)
[2023-04-22 23:26] LABS: BASO % 0.6 % (0-2.0); EOS % 2.7 % (0-4.5); HEMATOCRIT 42.1 % (35.4-49); HEMOGLOBIN 14.7 GM/dL (11.7-16.9); LYMPH % 33.6 % (8-40); MCH 32.2 pg (25.7-33.7); MEAN CELL VOLUME 91.8 fl (80-96); MEAN PLT VOLUME 6.7 fl (7.5-11.1); MONO % 7.5 % (3.8-10.2); NEUT % 55.6 % (42.8-82.8); PLATELET COUNT 255 10^3/uL (134-434); RBC 4.58 M/mm3 (4.00-5.60); RDW 13.4 % (11.9-15.9); WHITE BLOOD COUNT 7.2 K/mm3 (4.0-10.0)
[2023-04-22 23:31] LABS: EPI CELLS 2 /uL (0-25.1); HYALINE CASTS 1 /uL (0-3.1); PH,URINE 5.5 (5.0-8.0); URINE APPEARANCE CLEAR; URINE BACTERIA 5 /uL (0-1359); URINE BILIRUBIN NEGATIVE (NEGATIVE); URINE COLOR YELLOW; URINE GLUCOSE (UA) NEGATIVE (NEGATIVE); URINE KETONE NEGATIVE (NEGATIVE); URINE LEUK ESTERASE NEGATIVE (NEGATIVE); URINE NITRITE NEGATIVE (NEGATIVE); URINE PROTEIN 2+ (NEGATIVE); URINE RBC 5 /uL (0-23.9); URINE WBC 6 /uL (0-25.8)
[2023-04-22] MEDS ORDERED: ACETAMINOPHEN 1000 MG/100 ML BAG IVPB ONE (23:31)
[2023-04-22 23:44] LABS: POTASSIUM 3.3 mmol/L (3.5-5.1)
[2023-04-22 23:46] LABS: CALCIUM 9.1 mg/dL (8.5-10.1)
[2023-04-22 23:47] LABS: ALBUMIN 3.8 g/dl (3.4-5.0); BLOOD UREA NITROGEN 15.6 mg/dL (7-18)
[2023-04-22 23:50] LABS: CREATININE 1.1 mg/dL (0.55-1.3)
[2023-04-22 23:51] LABS: BILIRUBIN,TOTAL 0.3 mg/dL (0.2-1); TOT PROT 7.3 g/dl (6.4-8.2)
[2023-04-22 23:55] LABS: N-TERMINAL BNP 15.6 pg/ml (5-125)
[2023-04-23] MEDS ORDERED: MAGNESIUM SULF 50% (8.12 MEQ/2 ML-1 GM VIAL) IVPB ONE (00:04)
[2023-04-23] MEDS ORDERED: ACETAMINOPHEN INJECTION 100 ML IVPB ONE (00:35)
[2023-04-23] MEDS ORDERED: POTASSIUM CHLORIDE TABS 20 MEQ TABLET.ER (FP) PO ONE ×2 (00:51)
[2023-04-23] MEDS ORDERED: MAGNESIUM SULFATE IN WATER 2 GM/50 ML IVPB IVPB ONE (00:52)
[2023-04-23 02:26] VITALS: BP 141/98; PULSE 66; RESP 17
== END 2023-04-23 02:54 | disposition home or self-care (01) ==
LOC: JER 22:09
PROC: 3E033NZ Introduction of Analgesics, Hypnotics, Sedatives into Peripheral Vein, Percutaneous Approach (ICD-10-PCS; principal; 2023-04-22)
PROC: 3E033GC Introduction of Other Therapeutic Substance into Peripheral Vein, Percutaneous Approach (ICD-10-PCS; 2023-04-22)
PROC: 3E033GC Introduction of Other Therapeutic Substance into Peripheral Vein, Percutaneous Approach (ICD-10-PCS; 2023-04-23)
DX: I10 Essential (primary) hypertension (principal); R11.0 Nausea; R53.1 Weakness; R51.9 Headache, unspecified
CPT/HCPCS: 36415; 70450-TC; 71045-TC-FY; 80053; 81003; 83735; 83880; 84484; 85025; 87086; 93005; 93010; 96374; 96375; 99285-25

== ENCOUNTER 2023-05-10 08:32 | Day surgery (SDC) | payer OTHER ==
[2023-05-05 15:45] VITALS: BMI 29.9
[2023-05-10] MEDS ORDERED: TETRACAINE 0.5% OPHTH SOLN 2 ML BOTTLE ONE (08:47)
[2023-05-10] MEDS ORDERED: LIDOCAINE 1% P/F 10 MG/ML VIAL ONE (08:47)
[2023-05-10] MEDS ORDERED: BSS (NA/CA/MG/K) BALANCED SALT SOLUTION OPHTH SOLN 15 ML BOTTLE ONE (08:47)
[2023-05-10] MEDS ORDERED: NEO/POLYMYX B SULF/DEXAMETH OPHTHALMIC 5ML BOTTLE ONE (08:48)
[2023-05-10] MEDS ORDERED: CARBACHOL 0.01% INTRA-OCULAR 1.5 ML VIAL ONE (08:48)
[2023-05-10] MEDS: CYCLOPENTOLATE 2% OPHTH SOLN 2 ML BOTTLE ONE ×3 (09:05→09:15)
[2023-05-10] MEDS: CIPROFLOXACIN HCL 0.3% OPHTH 2.5ML BOTTLE ONE ×3 (09:05→09:15)
[2023-05-10] MEDS: TROPICAMIDE 1% OPHTH SOLN 15 ML BOTTLE ONE ×3 (09:05→09:15)
[2023-05-10] MEDS: PHENYLEPHRINE 2.5% OPTHALMIC DROP 2ML BOTTLE ONE ×3 (09:05→09:15)
[2023-05-10] MEDS ORDERED: MIDAZOLAM HCL 2 MG/2 ML SINGLE DOSE VIAL ONE ×2 (10:30→10:44)
[2023-05-10] MEDS ORDERED: ONDANSETRON 4 MG/2 ML VIAL ONE (10:44)
[2023-05-10 11:46] VITALS: RESP 18; TEMP 98
[2023-05-10 11:47] VITALS: BP 130/77; PULSE 89
== END 2023-05-10 11:40 | disposition home or self-care (01) ==
LOC: FASU 08:32
PROVIDERS: ATTEND Ophthalmology
PROC: 08RK3JZ Replacement of Left Lens with Synthetic Substitute, Percutaneous Approach (ICD-10-PCS; principal; 2023-05-10 10:46)
DX: H26.8 Other specified cataract (principal)
CPT/HCPCS: 66984; V2632